=== PATIENT | male | born 1970 | race Two or more races ===

== ENCOUNTER 2025-05-12 15:59 | Emergency (ER) | payer MEDICAID, SELFPAY ==
[2025-05-12 16:08] VITALS: BP 110/77; PULSE 117; RESP 20; TEMP 36.8; O2SAT 96
--- NOTE | 2025-05-12 16:30 | PD.EDRME ---
Rapid Medical Screening Exam RME Arrival date/time: 05/12/25 15:59 Chief Complaint: Fever Vital signs: Vital Signs Temperature 98.2 F 05/12/25 16:08 Pulse Rate 117 H 05/12/25 16:08 Respiratory Rate 20 05/12/25 16:08 Blood Pressure 110/77 05/12/25 16:08 Pulse Oximetry (%) 96 05/12/25 16:08 Oxygen Delivery Method Room Air 05/12/25 16:08 96% room air Vital signs reviewed by provider: Yes RME Narrative: 54-year-old male presents to urgent care with complaint of fever that began 1 week ago. Also complains of a oozing lesion to an area behind his right upper extremity. Denies signs and symptoms of upper respiratory infection or and a lower respiratory infection. Denies nausea, vomiting, diarrhea. Exam: 54-year-old is in no apparent respiratory distress. ENT is within his normal limits. Neck is midline. Patient speaking full word sentences. The lungs are clear to auscultation and the heart is regular rhythm and rate. There are no lesions on the skin. Neurovascular is intact. Clinical Impression: Acute febrile illness
--- NOTE | 2025-05-12 16:37 | XR_ITS ---
CLINICAL INDICATION: Cough, fever and sweats intermittently for 1 week TECHNIQUE: XR chest 2V Study date and time: 05/12/2025 at 4:42 p.m. COMPARISON: None. FINDINGS: The cardiomediastinal silhouette is within normal limits. Mildly elevated right hemidiaphragm. No airspace opacities suggestive of pneumonia. No mass detected. No pleural effusion or pneumothorax. No acute osseous abnormality detected. Multiple very small metallic densities project over the right hemithorax including visualized lower neck on the right side. IMPRESSION: No radiographic evidence for acute cardiopulmonary abnormality. Specifically, no evidence for pneumonia. - This report was generated utilizing speech recognition software. -
[2025-05-12 17:01] LABS: Basophils # (Auto) 0.1 Thou/mm3 (0.0-0.2); Basophils % (Auto) 1 % (0-2.5); Eosinophils # (Auto) 0.3 Thou/mm3 (0.0-0.5); Eosinophils % (Auto) 3 % (0-10); Hematocrit 46.2 % (41.0-53.0); Hemoglobin 15.9 g/dL (13.5-16.0); Immature Granulocytes Auto 0.03 Thou/mm3 (0.00-0.00); Lymphocytes # (Auto) 3.2 Thou/mm3 (1.0-4.8); Lymphocytes % (Auto) 29 % (10-50); Mean Corpuscular HGB Conc 34.4 g/dl (31.0-37.0); Mean Corpuscular Hemoglobin 28.9 pg (25.0-35.0); Mean Corpuscular Volume 84 fL (80-100); Monocytes # (Auto) 0.9 Thou/mm3 (0.0-0.8); Monocytes % (Auto) 8 % (0-12); Neutrophils # (Auto) 6.6 Thou/mm3 (1.8-7.7); Neutrophils % (Auto) 59 % (37-80); Nucleated Red Blood Cell # 0.00 Thou/mm3 (0.00-0.00); Nucleated Red Blood Cell % 0 /100 WBC (0); Platelet Count 395 Thou/mm3 (140-440); RDW Standard Deviation 36.7 fL (35.1-43.9); Red Blood Count 5.50 Miln/mm3 (4.50-5.90); White Blood Count 11.1 Thou/mm3 (3.8-10.6)
[2025-05-12 17:34] LABS: Alanine Aminotransferase 29 U/L (10-49); Albumin, Serum 4.6 gm/dL (3.5-5.0); Albumin/Globulin Ratio 1.9 (1.2-2.2); Alkaline Phosphatase 74 U/L (46-116); Anion Gap 11 (7-16); Aspartate Amino Transferase 25 U/L (0-34); BUN/Creatinine Ratio 8 Ratio (12-20); Bilirubin,Total 0.3 mg/dL (0.3-1.2); Blood Urea Nitrogen 10 mg/dL (9-23); Calcium 9.3 mg/dL (8.3-10.6); Calcium (Corrected) 9.3 mg/dL (8.5-10.1); Carbon Dioxide 25.0 mMol/L (20.0-31.0); Chloride 100 mMol/L (98-107); Creatinine (Component) 1.3 mg/dL (0.6-1.3); Globulin 2.4 gm/dL (2.3-3.5); Glucose 388 mg/dL (74-106); Lipase 61 U/L (12-53); Osmolality,Calculated 286 (275-295); Potassium 4.4 mMol/L (3.4-5.1); Sodium 136 mMol/L (136-145); Total Protein 7.0 gm/dL (5.7-8.2); eGFR > 60 See Note
[2025-05-12 17:42] LABS: Collection Type, Urine Clean Catch; WBC,Urine 0 /hpf (0-5)
[2025-05-12 17:55] LABS: Bacteria,Urine Rare; Bilirubin,Urine Negative (Negative); Blood,Urine Negative (Negative); Clarity,Urine Clear (Clear/Hazy); Color,Urine Lt-Yellow (Lt Yel-Yel); Glucose, Urine 4+ (Negative); Hyaline Casts,Urine < 1 /hpf (0-1); Ketones,Urine Negative (Negative); Leukocyte Esterase,Urine Negative (Negative); Nitrite,Urine Negative (Negative); PH,Urine 6.0 (5.0-7.0); Protein,Urine Negative (Neg - Trace); RBC,Urine 1 /hpf (0-3); Specific Gravity,Urine 1.030 (1.001-1.035); Squamous Epithelial Cell,Urine 1 /hpf (0-5); Urobilinogen,Urine Negative mg/dL (0.0-1.0)
--- NOTE | 2025-05-12 19:46 | PD.EDFEVER ---
ED Fever RME/HPI General Chief Complaint: Fever Stated Complaint: FEVER X1 WEEK Time Seen by Provider: 05/12/25 19:34 Arrival date/time: 05/12/25 15:59 RME / HPI RME / HPI Narrative: 54-year-old male patient with significant history of hypertension, came in for evaluation regarding fever. Patient's been having fever on and off for the last 1 week, severity mild. Patient denies any cough denies any sore throat denies any abdominal pain denies any other complaints no medication was taken prior to ER visit. Impression: Acute febrile illness Related Data Previous Rx's ?Medication ?Instructions ?Recorded ibuprofen 800 mg tablet 800 mg PO Q8H PRN pain #30 tabs 05/12/25 Allergies Allergy/AdvReac Type Severity Reaction Status Date / Time No Known Allergies Allergy Verified 05/12/25 16:02 Review of Systems Review of Systems Narrative Review of Systems: Review of system reviewed and within normal limits except mentioned in HPI Physical Exam Narrative Physical exam: VITAL SIGNS: Reviewed. GENERAL APPEARANCE: Alert and interactive, follows commands, no acute distress, HEAD AND FACE: Non-traumatic. ENT: PERRL, pink conjunctivitis, eyelid no trauma, Mucous membrane moist. NECK: Supple, nontender, no nuchal rigidity. CHEST: No tenderness, no crepitus, no paradoxical movement, no retractions. LUNGS: Clear, well ventilated, symmetric, no rales, no wheezing, no ronchi, no stridor, good breath sounds bilaterally. HEART: Regular rate, regular rhythm, no murmur, no gallops. ABDOMEN: Soft, positive bowel sounds, nondistended, no guarding, nontender, no rebound, no masses, RECTAL: Deferred. GENITAL: Deferred. NEUROLOGICAL: Gross motor function intact sensory function intact, Appropriate for age. MUSCULOSKELETAL: low back nontender, full range of motion. EXTREMITIES: Nontender, full range of motion. SKIN: Color pink, dry, no rash, no lacerations, no abrasions, no contusions. LYMPHATICS: Deferred. ED Exam Narrative Physical exam: VITAL SIGNS: Reviewed. GENERAL APPEARANCE: Alert and interactive, follows commands, no acute distress, HEAD AND FACE: Non-traumatic. ENT: PERRL, pink conjunctivitis, eyelid no trauma, Mucous membrane moist. NECK: Supple, nontender, no nuchal rigidity. CHEST: No tenderness, no crepitus, no paradoxical movement, no retractions. LUNGS: Clear, well ventilated, symmetric, no rales, no wheezing, no ronchi, no stridor, good breath sounds bilaterally. HEART: Regular rate, regular rhythm, no murmur, no gallops. ABDOMEN: Soft, positive bowel sounds, nondistended, no guarding, nontender, no rebound, no masses, RECTAL: Deferred. GENITAL: Deferred. NEUROLOGICAL: Gross motor function intact sensory function intact, Appropriate for age. MUSCULOSKELETAL: low back nontender, full range of motion. EXTREMITIES: Nontender, full range of motion. SKIN: Color pink, dry, no rash, no lacerations, no abrasions, no contusions. LYMPHATICS: Deferred. Course Quality Measures none Orders Category Date Time Status CXR2 [XR chest 2V] Stat Exams 05/12/25 16:37 Completed CBC Stat Lab 05/12/25 16:44 Completed Comprehensive Metabolic Panel Stat Lab 05/12/25 16:44 Completed Lipase Stat Lab 05/12/25 16:44 Completed Urinalysis Stat Lab 05/12/25 17:35 Completed Vital Signs Vital signs: Vital Signs Temperature 98.2 F 05/12/25 16:08 Pulse Rate 117 H 05/12/25 16:08 Respiratory Rate 20 05/12/25 16:08 Blood Pressure 110/77 05/12/25 16:08 Pulse Oximetry (%) 96 05/12/25 16:08 Oxygen Delivery Method Room Air 05/12/25 16:08 Fever MDM Narrative MDM Narrative:: 54-year-old male patient with significant history of hypertension, came in for evaluation regarding fever. Patient's been having fever on and off for the last 1 week, severity mild. Patient denies any cough denies any sore throat denies any abdominal pain denies any other complaints no medication was taken prior to ER visit. Patient's workup today all came back unremarkable there is no leukocytosis, urinalysis no UTI, chest x-ray showed no infiltrates no pneumothorax no hemothorax normal chest x-ray. Results discussed with the patient. Patient was advised to follow-up closely with PCP, for persistent no fever. Stable for discharge home Patient data External records reviewed:: None Clinical information provided by:: none Social determinants that could affect healthcare access:: none Patient has the following chronic illnesses:: Hypertension How is presenting disease/condition affected by chronic disease/condition?: uneffected by Evaluation data The following diagnostics were reviewed and interpreted by me:: lab results and radiology exam(s) Lab and/or radiology exams considered but not ordered:: None Interpretation Summary: See MDM Medications / Prescriptions Medications or Prescriptions considered but not ordered:: None Medication administrations:: None Consultations Consultation(s) initiated? (list below): No Diagnosis Fever Differential Diagnosis: viral infection and sepsis Most likely diagnosis given after review of the tests above:: Fever, viral infection Admission Indicated Admission indicated?: not indicated Admission Request Was there a request for admission?: No Disposition Plan Disposition Plan: Discharge Discharge Attestation Discharge Attestation: The patient was given an opportunity to ask questions and understood the discharge instructions. Discharge instructions specifically effects, indications for sooner follow up or return to the emergency department, and the expected course of current diagnosis. Patient condition: Stable Discharge Plan Plan Patient Disposition: HOME (Self Care) Discharge Disposition comment: Stable Prescriptions/Referrals Prescriptions/Med Rec: New ibuprofen 800 mg tablet 800 mg PO Q8H PRN (Reason: pain) Qty: 30 0RF Problem List Clinical Impression: Viral infection Patient/Caregiver Discharge Instructions Discharge Activity: activity as tolerated Education Materials: ED Viral Syndrome (Adult) Additional Instructions: Thank you for the opportunity for serving you today. You are stable for discharged . You are advised to: Follow-up with your PCP in 1 to 2 days Return to ED for worsening of symptoms Increase oral fluids Take medication as prescribed Print Language: Hungarian Stand Alone Forms: Faustina Award Info., Patient Portal Info Letter
[2025-05-12 20:01] VITALS: TEMP 37.1
== END 2025-05-12 20:01 | disposition home or self-care (01) ==
LOC: SERX 20:11
PROVIDERS: Physician Assistant; Emergency Provider Emergency Medicine
DX: B34.9 Viral infection, unspecified (principal); I10 Essential (primary) hypertension
CPT/HCPCS: 36415; 71046; 80053; 81001; 83690; 85025; 99283